=== PATIENT | male | born 1955 | race Two or more races ===

== ENCOUNTER 2023-12-22 10:41 | Outpatient (CLI) | payer OTHER | END 2023-12-22 10:42 | disposition home or self-care (01) | LOC: TOM 10:41 | PROVIDERS: ATTEND Internal Medicine | DX: I51.7 Cardiomegaly (principal); I70.0 Atherosclerosis of aorta; J44.9 Chronic obstructive pulmonary disease, unspecified; J84.10 Pulmonary fibrosis, unspecified; R91.8 Other nonspecific abnormal finding of lung field; J43.0 Unilateral pulmonary emphysema [MacLeod's syndrome] ==

== ENCOUNTER 2023-12-27 12:45 | Outpatient (CLI) | payer OTHER ==
[2023-12-27 14:39] LABS: BILIRUBIN TOTAL 1.22 mg/dL (0.3-1.2); CALCIUM 9.8 mg/dL (8.5-10.1); CREATININE SERUM 1.4 mg/dL (0.70-1.30); GFR 50.4; GLOBULINA 3.6 G/DL (2.4-3.5); POTASSIUM 4.34 mEq/L (3.5-5.1); TOTAL PROTEIN 7.6 gm/dL (6.4-8.2)
== END 2023-12-27 12:46 | disposition home or self-care (01) ==
LOC: LAB 12:45
PROVIDERS: ATTEND Radiology Nuclear Radiology
DX: D17.5 Benign lipomatous neoplasm of intra-abdominal organs (principal)

== ENCOUNTER 2023-12-29 07:09 | Outpatient (CLI) | payer OTHER | END 2023-12-29 07:12 | disposition home or self-care (01) | LOC: TOM 07:09 | PROVIDERS: ATTEND Radiology Nuclear Radiology | DX: D17.5 Benign lipomatous neoplasm of intra-abdominal organs (principal); C22.4 Other sarcomas of liver; R10.9 Unspecified abdominal pain | CPT/HCPCS: 74177; Q9965 ==

== ENCOUNTER 2024-03-26 12:28 | Outpatient (CLI) | payer OTHER | END 2024-03-26 12:40 | disposition home or self-care (01) | LOC: TOM 12:28 | PROVIDERS: ATTEND Radiology Nuclear Radiology | DX: R91.1 Solitary pulmonary nodule (principal) ==

== ENCOUNTER 2024-04-10 07:00 | Outpatient (CLI) | payer OTHER | END 2024-04-10 07:06 | disposition home or self-care (01) | LOC: SONOGRAMA 07:00 | DX: K76.0 Fatty (change of) liver, not elsewhere classified (principal) ==

== ENCOUNTER 2024-10-09 08:29 | Outpatient (CLI) | payer OTHER | END 2024-10-09 08:33 | disposition home or self-care (01) | LOC: TOM 08:29 | DX: R91.1 Solitary pulmonary nodule (principal) ==

== ENCOUNTER → 2024-10-29 07:53 | Outpatient (CLI) | payer OTHER ==
[2024-10-29 08:35] LABS: BASO % 0.9 % (0.1-1.2); EOS # 0.34 (0.04-0.54); EOS % 4.4 % (0.7-7.0); LYMPH # 2.86 (1.18-3.74); LYMPH % 37.0 % (19.3-53.1); MEAN PLATELET VOLUME 9.90 fl (9.4-12.4); MONO # 0.62 (0.24-0.82); MONO % 8.0 % (4.7-12.5); NEUT # 3.83 (1.56-6.13); NEUT % 49.4 % (34.0-71.1); RED CELL DISTRIBUTION WIDTH 13.2 % (11.6-14.4)
[2024-10-29 08:56] LABS: INR 1.1
[2024-10-29 09:15] LABS: URINE APPEARANCE Clear; URINE BILIRRUBIN Negative (NEGATIVE); URINE BLOOD Negative; URINE COLOR Yellow; URINE GLUCOSE Negative (NEGATIVE); URINE KETONE Trace (NEGATIVE); URINE LEUKOCYTE Negative; URINE NITRATE Negative; URINE PROTEIN Trace (NEGATIVE); URINE UROBILINOGEN 0.2 E.U./dl
[2024-10-29 09:18] LABS: RH POSITIVE
[2024-10-29 09:19] LABS: URINE BACTERIA 15.5 uL (0.0-1933); URINE EPITHELIAL CELLS 8.4 uL (0.0-38.8); URINE RBC 3.3 uL (0.0-20.8); URINE WBC 8.1 uL (0.0-23.2)
[2024-10-29 09:43] LABS: URINE CAST 0.14 uL (0.0-1.40)
[2024-10-29 11:18] LABS: ALT/SGPT 25.0 U/L (12-78); AST/SGOT 18.0 U/L (15-37); BILIRUBIN TOTAL 1.33 mg/dL (0.3-1.2); BUN CREA RATIO 16.0 (7.0-25.0); CREATININE SERUM 1.1 mg/dL (0.70-1.30); GFR 66.57; GLOBULINA 3.3 G/DL (2.4-3.5); GLUCOSE FASTING 114.0 mg/dL (65-100); OSMOLALITY SERUM 286.0 MOSM/KG (275-295)
== END | disposition home or self-care (01) ==
LOC: LAB 07:53
DX: C34.12 Malignant neoplasm of upper lobe, left bronchus or lung (principal)

== ENCOUNTER 2025-01-28 09:16 | Outpatient (CLI) | payer OTHER | END 2025-01-28 09:24 | disposition home or self-care (01) | LOC: RAD 09:16 | PROVIDERS: ATTEND Internal Medicine Pulmonary Disease | DX: J84.116 Cryptogenic organizing pneumonia (principal); J30.9 Allergic rhinitis, unspecified ==